=== PATIENT | male | born 1970 | race Caucasian/White ===

== ENCOUNTER → 2017-11-12 | Outpatient (CLI) | payer OTHER ==
[~2017-11-12] MED LIST: None per pt.
== END | disposition home or self-care (01) ==
LOC: RAD 15:58
PROVIDERS: ATTEND Physician Assistant Surgical
DX: M94.269 Chondromalacia, unspecified knee (principal); M25.461 Effusion, right knee; Y93.66 Activity, soccer

== ENCOUNTER → 2020-05-20 | Outpatient (CLI) | payer OTHER ==
[~2020-05-20] MED LIST changes: +ATOR20TA37 PO; +ERGO2000 PO; +MESA1.2T PO; +UBID1CAP43 PO
== END | disposition home or self-care (01) ==
LOC: STAR 10:42
PROVIDERS: ATTEND Surgery
DX: Z20.828 Contact with and (suspected) exposure to other viral communicable diseases (principal); K42.9 Umbilical hernia without obstruction or gangrene
CPT/HCPCS: 87635

== ENCOUNTER 2020-05-26 10:00 | Day surgery (SDC) | payer OTHER ==
[~2020-05-26] VITALS: Ht 175.3 cm; Wt 118.1 kg
[2020-05-26 10:39] VITALS: BP 154/89
[2020-05-26] MEDS ORDERED: LACTATED RINGERS 1,000 ML IV SCH (11:00)
[2020-05-26] MEDS ORDERED: CHLORHEXIDINE 15 ML UDC MM ONE (11:00)
[2020-05-26] MEDS ORDERED: LIDOCAINE-MPF 1%, 2ML INFIL ONE (11:00)
[2020-05-26] MEDS ORDERED: FENTANYL PF 100 MCG/2ML ONE ×3 (11:33→14:01)
[2020-05-26] MEDS ORDERED: MIDAZOLAM 1 MG/ML, 2ML ONE (11:34)
[2020-05-26] MEDS ORDERED: BUPIVACAINE/PF 0.25% ONE (11:45)
[2020-05-26] MEDS ORDERED: EPINEPHRINE 1 MG/ML, 1ML ONE (11:45)
[2020-05-26] MEDS ORDERED: BUPIVACAINE/PF 0.5% ONE (11:45)
[2020-05-26] MEDS ORDERED: KETOROLAC 30 MG/1 ML IVPush PRN (12:00)
[2020-05-26] MEDS ORDERED: OXYcodone 5 MG/5 ML ORAL.SOL UDC PO PRN (12:00)
[2020-05-26] MEDS ORDERED: PROMETHAZINE 25 MG/ML, 1ML IVPush PRN (12:00)
[2020-05-26] MEDS ORDERED: HYDROmorphone 1 MG/ML, 1ML INJ IVPush PRN (12:00)
[2020-05-26] MEDS ORDERED: HYDROcodone/APAP 7.5-325MG/15ML UDC PO PRN (12:00)
[2020-05-26] MEDS ORDERED: SUCCINYLCHOLINE 20 MG/ML, 10ML ONE (12:14)
[2020-05-26] MEDS ORDERED: ONDANSETRON 2MG/ML, 2ML ONE (12:14)
[2020-05-26] MEDS ORDERED: ROCURONIUM 10 MG/ML,10ML ONE (12:14)
[2020-05-26] MEDS ORDERED: CEFAZOLIN 1,000 MG ONE (12:14)
[2020-05-26] MEDS ORDERED: DEXAMETHASONE 4 MG/ML, 1ML ONE (12:14)
[2020-05-26] MEDS ORDERED: PHENYLEPHRINE 10 MG/ML ONE (12:14)
[2020-05-26] MEDS ORDERED: PROPOFOL 10 MG/ML, 20ML ONE (12:14)
[2020-05-26] MEDS: FENTANYL PF 100 MCG/2ML IV PRN ×4 (13:30→14:03)
[2020-05-26] MEDS ORDERED: KETOROLAC 30 MG/1 ML ONE (13:40)
[2020-05-26] MEDS ORDERED: OXYcodone 5 MG/5 ML ORAL.SOL UDC ONE (13:41)
== END 2020-05-26 16:30 | disposition home or self-care (01) ==
LOC: OUT 10:00
PROVIDERS: ATTEND Surgery
DX: K42.0 Umbilical hernia with obstruction, without gangrene (principal); G47.33 Obstructive sleep apnea (adult) (pediatric); E78.5 Hyperlipidemia, unspecified; Z79.899 Other long term (current) drug therapy; Z98.890 Other specified postprocedural states
CPT/HCPCS: 49653; C1781; J0171; J0330; J0690; J1100; J1885; J2250; J2370; J2405; J2704; J3010; J7120; S2900